=== PATIENT | male | born 1980 | race Asian ===

== ENCOUNTER 2018-02-21 10:09 | Outpatient (CLI) | payer OTHER ==
[2018-02-21 10:43] LABS: BASOPHILS % (AUTO) 0.9 % (0.0-2.0); EOSINOPHILS # (AUTO) 0.1 K/uL (0-0.4); EOSINOPHILS % (AUTO) 1.9 % (0.0-4.0); HEMATOCRIT 42.9 % (36-52); HEMOGLOBIN 14.4 g/dL (12.0-18.0); LYMPHOCYTES # (AUTO) 1.6 K/uL (2.0-11.5); LYMPHOCYTES % (AUTO) 34.5 % (20.5-51.1); MEAN CORPUSCULAR HEMOGLOBIN 30 pg (27-31); MEAN CORPUSCULAR HGB CONC 34 g/dL (33-37); MEAN CORPUSCULAR VOLUME 90.6 fL (80-94); MONOCYTES # (AUTO) 0.4 K/uL (0.8-1.0); MONOCYTES % (AUTO) 9.3 % (1.7-9.3); NEUTROPHILS # (AUTO) 2.5 K/uL (1.8-7.7); NEUTROPHILS % (AUTO) 53.4 % (42.2-75.2); PLATELET COUNT (AUTO) 198 K/uL (140-450); RED BLOOD CELL COUNT(AUTO) 4.73 MIL/uL (4.20-6.10); RED CELL DISTRIBUTION WIDTH 13.4 % (11.6-13.7); WHITE BLOOD COUNT (AUTO) 4.7 K/uL (4.8-10.8)
[2018-02-21 11:15] LABS: ANION GAP 9.8 (8-16); POTASSIUM 4.8 mmol/L (3.5-5.1)
[2018-02-21 11:16] LABS: TOTAL BILIRUBIN 0.5 mg/dL (0.0-1.0)
[2018-02-21 11:17] LABS: CHOL/HDL RATIO 3.9 (1-4.5)
[2018-02-21 11:29] LABS: MAGNESIUM 1.8 mg/dL (1.8-2.4)
[2018-02-21 12:26] LABS: APPEARANCE,URINE CLEAR (CLEAR); BILIRUBIN,URINE NEGATIVE (NEGATIVE); BLOOD, URINE NEGATIVE (NEGATIVE); COLOR,URINE YELLOW (YELLOW); LEUKOCYTE ESTERASE ,URINE NEGATIVE (NEGATIVE); NITRITE, URINE NEGATIVE (NEGATIVE); PH,URINE 7.5 (5.0-9.0); UGLUCOSE NEGATIVE (NEGATIVE)
[2018-02-21 13:16] LABS: THYROID STIMULATING HORMONE 1.76 uIU/mL (0.34-3.74)
[2018-02-22 09:08] LABS: T4 FREE (DIRECT) 1.21 ng/dL (0.82-1.77)
== END 2018-02-21 21:39 | disposition home or self-care (01) ==
LOC: MLB 10:09
PROVIDERS: ATTEND Family Medicine
DX: Z00.01 Encounter for general adult medical examination with abnormal findings (principal); G47.00 Insomnia, unspecified
CPT/HCPCS: 36415; 80053; 81003; 82306; 83036; 83735; 84439; 84443; 85025

== ENCOUNTER 2018-08-13 13:55 | Inpatient (IN) | payer OTHER ==
[~2018-08-13] VITALS: Ht 170.2 cm; Wt 65.8 kg
--- NOTE | 2018-08-13 14:09 | NUR ---
Patient ambulated to bed 12. RN evaluating patient at bedside.
[2018-08-13 14:22] VITALS: BP 111/74
--- NOTE | 2018-08-13 14:22 | NUR ---
PT BIB SELF C/O GENERALIZED WEAKNESS X8 DAYS. PT REPORTS FATIGUE AND DOUBLE VISION. AAOX4, COOPERATIVE, HANDGRIPS EQUAL, GAIT STEADY, SPEECH CLEAR, PERRLA. RT EYE DROOPY. PT REPORTS DRINKING 1 CAN OF BEER LAST NIGHT, DENEIS DRUG USE. PT DENIES PAIN AT THIS TIME. VSS. ER MD NOTIFED OF PT CONDITION. MEDHX:ANXIETY RX:EFFEXOR
--- NOTE | 2018-08-13 14:42 | NUR ---
PT GOING TO CT AT THIS TIME.
--- NOTE | 2018-08-13 14:51 | NUR ---
PT RETURNED FORM CT AT THIS TIME.
--- NOTE | 2018-08-13 14:51 | NUR ---
Patient returned from CT scan. RN re-evaluating patient at bedside.
[2018-08-13] MEDS ORDERED: NACL 0.9% 1,000 ML IV ONE (15:25)
[2018-08-13 15:50] LABS: BASOPHILS % (AUTO) 0.2 % (0.0-2.0); EOSINOPHILS % (AUTO) 0.1 % (0.0-4.0); HEMATOCRIT 42.1 % (36-52); HEMOGLOBIN 14.5 g/dL (12.0-18.0); LYMPHOCYTES # (AUTO) 1.5 K/uL (2.0-11.5); MEAN CORPUSCULAR HEMOGLOBIN 31 pg (27-31); MEAN CORPUSCULAR HGB CONC 35 g/dL (33-37); MEAN CORPUSCULAR VOLUME 91.2 fL (80-94); MONOCYTES # (AUTO) 0.4 K/uL (0.8-1.0); MONOCYTES % (AUTO) 4.1 % (1.7-9.3); NEUTROPHILS # (AUTO) 8.6 K/uL (1.8-7.7); NEUTROPHILS % (AUTO) 81.6 % (42.2-75.2); PLATELET COUNT (AUTO) 248 K/uL (140-450); RED BLOOD CELL COUNT(AUTO) 4.61 MIL/uL (4.20-6.10); RED CELL DISTRIBUTION WIDTH 13.1 % (11.6-13.7); WHITE BLOOD COUNT (AUTO) 10.5 K/uL (4.8-10.8)
[2018-08-13 16:03] LABS: ANION GAP 11.4 (8-16); CARBON DIOXIDE 27.8 mmol/L (21-32); POTASSIUM 4.2 mmol/L (3.5-5.1)
[2018-08-13 16:09] LABS: ALBUMIN 3.8 g/dL (3.4-5.0); TOTAL BILIRUBIN 0.4 mg/dL (0.0-1.0)
--- NOTE | 2018-08-13 16:19 | NUR ---
PT AMBULATED TO RESTROOM TO PROVIDE URINE SAMPLE AT THIS TIME.
[2018-08-13 16:37] LABS: APPEARANCE,URINE CLEAR (CLEAR); BILIRUBIN,URINE NEGATIVE (NEGATIVE); BLOOD, URINE NEGATIVE (NEGATIVE); COLOR,URINE OTHER (YELLOW); LEUKOCYTE ESTERASE ,URINE NEGATIVE (NEGATIVE); NITRITE, URINE NEGATIVE (NEGATIVE); UGLUCOSE NEGATIVE (NEGATIVE)
[2018-08-13] MEDS ORDERED: ONDANSETRON 4 MG/2 ML VIAL IM/IVP PRN (16:40)
[2018-08-13] MEDS ORDERED: DOCUSATE SODIUM 100 MG GELCAP PO PRN (16:40)
[2018-08-13] MEDS ORDERED: VENL150C1 PO (16:41)
--- NOTE | 2018-08-13 16:54 | NUR ---
Dr. Abhijeet Benjamin and Dr. Segura evaluating the patient at bedside.
[2018-08-13 17:33] LABS: LACTATE DEHYDROGENASE 158 U/L (85-227)
[2018-08-13 17:37] LABS: BARBITURATE, URINE NEG. ng/ml (NEG <=200); BENZODIAZEPINE, URINE NEG. ng/mL (NEG <=200); CANNABINOID, URINE NEG. ng/mL (NEG <=50); COCAINE, URINE NEG. ng/mL (NEG <=300); OPIATE, URINE NEG. ng/mL (NEG <=2000); PHENCYCLIDINE SCREEN,URINE NEG. ng/mL (NEG <=25)
[2018-08-13 17:40] LABS: AMYLASE 49 U/L (25-115); LIPASE 173 U/L (73-393); MAGNESIUM 1.9 mg/dL (1.8-2.4); PHOSPHORUS 3.4 mg/dL (2.5-4.9); THYROID STIMULATING HORMONE 0.99 uIU/mL (0.34-3.74)
[2018-08-13 17:43] LABS: PROTHROMBIN TIME 10.3 secs (10.8-13.4)
--- NOTE | 2018-08-13 17:43 | NUR ---
Dr. Lobato (Neurology) evaluating patient at bedside.
--- NOTE | 2018-08-13 18:10 | NUR ---
Patient will be admitted to care of [facility]. Admited to ICU BED 2 VIA KWASI W/ VSAlphonso. Belongings list completed. Report to ARASH KING.
--- NOTE | 2018-08-13 18:11 | NUR ---
RECEIVED PATIENT FROM MAIL HANDLER EQUIPMENT OPERATOR, LU, FOR CONTINUITY OF CARE. PATIENT IS AAOX4, ABLE TO MAKE NEEDS KNOWN AND FOLLOWS COMMANDS. PATIENT SKIN IS WARM, DRY, AFEBRILE, AND INTACT. HE HAS A PERIPHERAL IV SITE TO RAC, 20 GAUGE, ASYMPTOMATIC AND PATENT. HE HAS NS RUNNING AT 100ML/HR. PATIENT IS ON ROOM AIR, SR ON MONITOR, BP IS 112/90, O2 SAT 100%, DENIES ANY N, V, SOB, OR PAIN. HOB IS SEMI- CABALLERO, BED LOCKED, SIDE RAILS UP. SAFETY PRECAUTIONS AND ALARMS ASSESSED AND IN PLACE. NO SIGNS OF DISTRESS NOTED. WILL CONTINUE TO MONITOR
[2018-08-13] MEDS: NACL 0.9% 1,000 ML IV SCH (18:20)
--- NOTE | 2018-08-13 18:23 | NUR ---
DR. BRAND IN TO SEE PATIENT.
--- NOTE | 2018-08-13 19:18 | NUR ---
ENDORSED CONTINUITY OF CARE TO PHOTOCOPIER TECHNICIAN RN, BRANT. NO SIGNS OF DISTRESS NOTED
--- NOTE | 2018-08-13 19:30 | NUR ---
RECEIVED REPORT FROM AM NURSE, PT AT BED AWAKE, A&O X4, PERRLA 3MM, BRISK, TEMP. 98.3, S1S2 PRESENT, REGULAR, PULSES 2+, FULL, BILATERAL LOWER AND UPPER EXTREMITIES, CAP REFILL <3S, LUNG SOUNDS CLEAR THROUGHOUT, RR 14, REGULAR, SYMMETRICAL, UNLABORED, BOWEL SOUNDS PRESENT AND ACTIVE IN ALL QUADRANTS, LAST BM 01/13/19, MUSCLE STRENGTH 5/5 BILATERAL ON UPPER AND LOWER EXTREMITIES, SKIN INTACT, COLOR APPROPRIATE FOR BOTH ETHNICITY, PT HAS 20G ON RIGHT AC, RUNNING NS AT 100ML/HR. SIDE RAILS UP X2, ROOM FREE OF CLUTTER, HOB AT 30 DEGREES.
[2018-08-13] MEDS: ACETAMINOPHEN 325 MG TAB PO PRN (20:05)
[2018-08-13] MEDS: PYRIDOSTIGMINE 60 MG TAB PO SCH (20:05)
[2018-08-13 20:44] VITALS: BP 124/83
[2018-08-13] MEDS ORDERED: IBUPROFEN 600 MG TAB PO SCH (21:00)
[2018-08-13] MEDS ORDERED: diphenhydrAMINE 50 MG/ML VIAL IVP SCH (21:00)
[2018-08-13 22:00] VITALS: BP 124/72
--- NOTE | 2018-08-13 22:00 | NUR ---
PT BELONGING AT BEDSIDE: SHOES/JACKET/PANTS IN BELONGING BACK, BLACK BACKPACK PRESENT AT BEDSIDE IN DRAWERS. PT IN POSSESSION OF BLACK CELLPHONE/AERODYNAMICS TEACHER. PT WAS WEARING GOLD NECKLACE PRIOR TO GOING TO CT SCAN, NECKLACE WAS REMOVED AND PLACED IN PATIENT WALLET, PT WALLET PLACED IN SIDE POCKET OF BACKPACK. PT IS AWARE OF THE LOCATIONS OF HIS BELONGINGS.
--- NOTE | 2018-08-13 22:02 | NUR ---
PT TRANSFERRED TO IMAGING BY KWASI FOR CT CHEST WITH CONTRAST. PT TOLERATED PROCEDURE WELL.
--- NOTE | 2018-08-13 22:25 | NUR ---
RECEIVED PT ON ICU FROM IMAGING. PT AWAKE AND COOPERATIVE, VS WNL, IV FLUIDS RUNNING, NS 100 ML/HR, SIDE RAILS UP X2, ROOM FREE OF CLUTTER, CALL LIGHT WITHIN REACH, HOB RAISED 30 DEGREES, PT TOLERATED PROCEDURE WELL, WILL CONTINUE TO MONITOR PT.
[2018-08-14] VITALS (12 sets, daily range): BP systolic 89–127; BP diastolic 54–79
--- NOTE | 2018-08-14 00:23 | NUR ---
PT AT BED, EYES CLOSED, BREATHING REGULARLY, VS WNL, SIDE RAILS UP X2, CALL LIGHT WITHIN REACH, ALARMS IN PLACE. WILL CONTINUE TO MONITOR PT.
[2018-08-14] MEDS: NACL 0.9% 1,000 ML IV SCH (00:26)
[2018-08-14] MEDS: PYRIDOSTIGMINE 60 MG TAB PO SCH ×5 (00:54→23:53)
--- NOTE | 2018-08-14 02:32 | NUR ---
PT AT BED, EYES CLOSED, BREATHING REGULARLY, VS WNL, SIDE RAILS UP X2, CALL LIGHT WITHIN REACH, ALARMS IN PLACE, HOB AT 30 DEGREES. WILL CONTINUE TO MONITOR PT.
--- NOTE | 2018-08-14 05:47 | NUR ---
PT UP AT BEDSIDE ABLE TO AMBULATE TO COMMODE, STEADY GATE. PT DENIES SOB/PAIN. INDEPENDENT WITH AM CARES, CALM/COOPERATIVE. PT STATED HE HAD MODERATE BOWEL MOVEMENT. Addendum: 08/14/18 at 0550 by Eulalia Preciado RN ABLE TO AMBULATE TO BATHROOM IN ROOM 8.
[2018-08-14 06:40] LABS: ANION GAP 8.7 (8-16); POTASSIUM 4.7 mmol/L (3.5-5.1)
[2018-08-14 06:43] LABS: PHOSPHORUS 3.8 mg/dL (2.5-4.9)
[2018-08-14 06:44] LABS: BASOPHILS % (AUTO) 0.6 % (0.0-2.0); EOSINOPHILS # (AUTO) 0.1 K/uL (0-0.4); EOSINOPHILS % (AUTO) 1.2 % (0.0-4.0); HEMATOCRIT 38.9 % (36-52); HEMOGLOBIN 13.4 g/dL (12.0-18.0); LYMPHOCYTES # (AUTO) 1.9 K/uL (2.0-11.5); LYMPHOCYTES % (AUTO) 33.5 % (20.5-51.1); MEAN CORPUSCULAR HEMOGLOBIN 32 pg (27-31); MEAN CORPUSCULAR HGB CONC 34 g/dL (33-37); MEAN CORPUSCULAR VOLUME 92.3 fL (80-94); MONOCYTES # (AUTO) 0.5 K/uL (0.8-1.0); MONOCYTES % (AUTO) 8.2 % (1.7-9.3); NEUTROPHILS # (AUTO) 3.2 K/uL (1.8-7.7); NEUTROPHILS % (AUTO) 56.5 % (42.2-75.2); PLATELET COUNT (AUTO) 222 K/uL (140-450); RED BLOOD CELL COUNT(AUTO) 4.22 MIL/uL (4.20-6.10); RED CELL DISTRIBUTION WIDTH 13.5 % (11.6-13.7); WHITE BLOOD COUNT (AUTO) 5.6 K/uL (4.8-10.8)
[2018-08-14 06:46] LABS: CHOL/HDL RATIO 3.8 (1-4.5)
--- NOTE | 2018-08-14 07:18 | NUR ---
RECEIVED BEDSIDE REPORT FROM CHARGEBACK ANALYST RN, BRANT, FOR CONTINUITY OF CARE. PATIENT IS AAOX4, ABLE TO MAKE NEEDS KNOWN AND FOLLOWS COMMANDS. PATIENT SKIN IS AFEBRILE, WARM, AND DRY. ON ROOM AIR, O2 SAT IS 100%, BREATHING EVEN AND UNLABORED. PATIENT IS SR ON MONITOR, DENIES PAIN OR SOB. HOB 30 DEGREES, BED LOCKED, SIDE RAILS UP. NO SIGNS OF DISTRESS NOTED. CALL LIGHT WITHIN REACH. WILL CONTINUE TO MONITOR
--- NOTE | 2018-08-14 07:24 | NUR ---
CHANGE OF SHIFT REPORT GIVEN TO AM NURSE FOR CONTINUITY OF CARE.
[2018-08-14] MEDS: VENLAFAXINE XR 75 MG CAPER PO SCH (08:55)
[2018-08-14] MEDS ORDERED: COMMUNICATION ORDER MC SCH (09:00)
[2018-08-14] MEDS ORDERED: ALBUTEROL SULFATE/IPRATROPIU 3 ML SOL IH PRN (10:10)
[2018-08-14] MEDS: diphenhydrAMINE 50 MG/ML VIAL IVP SCH (11:53)
[2018-08-14] MEDS: IBUPROFEN 600 MG TAB PO SCH (11:53)
[2018-08-14] MEDS ORDERED: PRIVIGEN IV SCH (12:00)
--- NOTE | 2018-08-14 12:26 | NUR ---
DR. GOMEZ AND DR. HEATH IN TO SEE PATIENT, WILL FOLLOW UP ON ANY ORDERS.
--- NOTE | 2018-08-14 12:44 | NUR ---
PATIENT HAS BEEN SCREENED AND CATEGORIZED MODERATE NUTRITION RISK. PATIENT WILL BE SEEN WITHIN 3-5 DAYS OF ADMISSION. 08/16/18AMANDA POOLE MBA, RD
--- NOTE | 2018-08-14 12:44 | NUR ---
DR. POND IN TO SEE AND EXAMINE PATIENT, UPDATED ON PATIENT'S CONDITION. WILL FOLLOW UP ON ANY ORDERS.
--- NOTE | 2018-08-14 12:50 | NUR ---
PER DR. HEATH, D/C IVF TO PREVENT PATIENT FROM FLUID OVERLOAD.
--- NOTE | 2018-08-14 15:22 | NUR ---
REPEATED PT PEAK FLOW NOW 220
--- NOTE | 2018-08-14 16:35 | NUR ---
TOLERATED PEAK FLOW METER WELL WITHOUT INCIDENT PREDICTED 560 L ACHIEVED 530 L
--- NOTE | 2018-08-14 17:17 | NUR ---
ADMINISTERED SCHEDULED MED, PATIENT TOLERATED WELL. NO SIGNS OF DISTRESS NOTED.
--- NOTE | 2018-08-14 19:30 | NUR ---
RECEIVED BEDSIDE REPORT FROM DAY RN, FOR CONTINUITY OF CARE. PATIENT IS AAOX4, ABLE TO MAKE NEEDS KNOWN AND FOLLOWS COMMANDS. PATIENT SKIN IS AFEBRILE, WARM, AND DRY. ON ROOM AIR, O2 SAT IS 100%, BREATHING EVEN AND UNLABORED. PATIENT IS SR ON MONITOR, DENIES PAIN OR SOB. HOB 30 DEGREES, BED LOCKED, SIDE RAILS UP. NO SIGNS OF DISTRESS NOTED. CALL LIGHT WITHIN REACH. WILL CONTINUE TO MONITOR. IVIG IS RUNNING.
--- NOTE | 2018-08-14 22:24 | NUR ---
PT COMFORTABLE, NO S/S OF ANY DISTRESS. WILL CONTINUE TO MONITOR CLOSELY.
[2018-08-15] VITALS (12 sets, daily range): BP systolic 91–121; BP diastolic 51–84
--- NOTE | 2018-08-15 02:00 | NUR ---
PT HAS RIGHT EYE AND ARM WEAKNESS FOR A BRIEF PERIOD. ABLE TO WALK TO THE RESTROOM. WILL CONTINUE TO MONITOR.
--- NOTE | 2018-08-15 04:00 | NUR ---
PT COMFORTABLE, WILL CONTINUE TO MONITOR CLOSELY.
[2018-08-15] MEDS: PYRIDOSTIGMINE 60 MG TAB PO SCH ×5 (06:14→23:51)
--- NOTE | 2018-08-15 06:30 | NUR ---
PT STABLE, NO S/S OF ANY EPISODE OF SEIZURES. WILL CONTINUE TO MONITOR CLOSELY.
--- NOTE | 2018-08-15 07:15 | NUR ---
RECEIVED BEDSIDE REPORT FROM SCRIPT WRITER RN, ASHLYN, FOR CONTINUITY OF CARE. PATIENT IS AAOX4, FOLLOWS COMMANDS AND MAKES NEEDS KNOWN. PATIENT SKIN IS WARM, DRY, INTACT. SHE HAS PERIPHERAL IV SITE TO RAC, 20 GAUGE, ASYMPTOMATIC AND PATENT. PATIENT IS ON ROOM AIR, BREATHING EVEN AND UNLABORED. HE IS SR ON MONITOR, BP STABLE, DENIES PAIN OR SOB. HOB IS HIGH CABALLERO, BED LOCKED, SIDE RAILS UP. SAFETY ALARMS AND PRECAUTIONS ASSESSED AND ENFORCED. NO SIGNS OF DISTRESS NOTED. WILL CONTINUE TO MONITOR.
[2018-08-15 07:19] LABS: BASOPHILS % (AUTO) 0.3 % (0.0-2.0); EOSINOPHILS # (AUTO) 0.1 K/uL (0-0.4); EOSINOPHILS % (AUTO) 1.2 % (0.0-4.0); HEMATOCRIT 39.7 % (36-52); HEMOGLOBIN 13.4 g/dL (12.0-18.0); LYMPHOCYTES # (AUTO) 1.4 K/uL (2.0-11.5); LYMPHOCYTES % (AUTO) 23.6 % (20.5-51.1); MEAN CORPUSCULAR HEMOGLOBIN 31 pg (27-31); MEAN CORPUSCULAR HGB CONC 34 g/dL (33-37); MEAN CORPUSCULAR VOLUME 92.1 fL (80-94); MONOCYTES # (AUTO) 0.5 K/uL (0.8-1.0); MONOCYTES % (AUTO) 7.8 % (1.7-9.3); NEUTROPHILS % (AUTO) 67.1 % (42.2-75.2); PLATELET COUNT (AUTO) 224 K/uL (140-450); RED BLOOD CELL COUNT(AUTO) 4.31 MIL/uL (4.20-6.10); RED CELL DISTRIBUTION WIDTH 13.5 % (11.6-13.7); WHITE BLOOD COUNT (AUTO) 5.9 K/uL (4.8-10.8)
--- NOTE | 2018-08-15 07:25 | NUR ---
BSSR GIVEN TO MORNING NURSE, PT STABLE. GCS 15
[2018-08-15 07:28] LABS: ANION GAP 8.7 (8-16); CARBON DIOXIDE 31.4 mmol/L (21-32); CREATININE 0.9 mg/dL (0.7-1.3); POTASSIUM 4.1 mmol/L (3.5-5.1)
[2018-08-15 07:29] LABS: MAGNESIUM 1.9 mg/dL (1.8-2.4); PHOSPHORUS 3.9 mg/dL (2.5-4.9)
--- NOTE | 2018-08-15 08:12 | NUR ---
BREAKFAST TRAY PROVIDED, PATIENT WALKED TO RESTROOM WITH STEADY GAIT. VITALS STABLE ON MONITOR
--- NOTE | 2018-08-15 08:56 | NUR ---
PATIENT TOLERATED 100% OF BREAKFAST, ADMINISTERED SCHEDULE MEDS, HELD MOTRIN AND BENADRYL FOR IVIG MEDICATION DUE AT 1200. PATIENT AWARE.
[2018-08-15] MEDS: VENLAFAXINE XR 75 MG CAPER PO SCH (09:00)
--- NOTE | 2018-08-15 10:39 | NUR ---
SPOKE WITH PATIENT REGARDING POSITIVE FOR MRSA, EDUCATED ON MRSA PROTOCOL, SUCH CONTACT ISOLATION, BACTROBAN TO NARES DAILY, AND CHLORHEXIDINE WIPES DAILY. PATIENT VERBALIZED UNDERSTANDING.
[2018-08-15] MEDS: CHLORHEXADINE GLUC 2% CLOTH TP SCH (10:53)
[2018-08-15] MEDS: IBUPROFEN 600 MG TAB PO SCH (11:52)
[2018-08-15] MEDS: MUPIROCIN CA NASAL 2% 1GM TUBE NS SCH (11:52)
[2018-08-15] MEDS: diphenhydrAMINE 50 MG/ML VIAL IVP SCH (11:52)
[2018-08-15] MEDS ORDERED: PRIVIGEN IV SCH (12:00)
--- NOTE | 2018-08-15 12:08 | NUR ---
STARTED PATIENT ON IVIG MEDICATION, PATIENT TOLERATING WELL. VERBALIZES UNDERSTANDING OF SIDE EFFECTS OF MEDICATION. NO SIGNS OF DISTRESS NOTED, WILL CONTINUE TO MONITOR
--- NOTE | 2018-08-15 13:04 | NUR ---
PATIENT COMPLAINS TO BURNING AT IV SITE. PERIPHERAL IV SITE WAS REMOVED FROM RAC, A NEW PERIPHERAL IV SITE WAS PLACED ON RFA, 18 GAUGE. PATIENT WAS EDUCATED ON IVIG ADMINISTRATION AND SIDE EFFECTS, AWARE THAT IVIG CAN SLIGHTLY BURN. PATIENT VERBALIZED UNDERSTANDING.
--- NOTE | 2018-08-15 13:17 | NUR ---
DR. GOMEZ AND DR. HEATH AT BEDSIDE, UPDATED ON PATIENT'S CONDITION. WILL FOLLOW UP ON ANY ORDERS.
--- NOTE | 2018-08-15 17:30 | NUR ---
PATIENT GIVEN DINNER TRAY, DENIES ANY SOB OR PAIN.
--- NOTE | 2018-08-15 19:00 | NUR ---
ENDORSED CONTINUITY OF CARE TO SYSTEM OPERATOR RNORBE. NO SIGNS OF DISTRESS AT THIS TIME.
--- NOTE | 2018-08-15 19:15 | NUR ---
RECEIVED REPORT FROM AM NURSE. INITIAL ASSESSMENT COMPLETED. PATIENT ALERT AWAKE ORIENTED X4. ATTACHED TO CORN CUTTER OPERATOR, PULSE OXIMETER. IV ACCESS AT RIGHT RIGHT FOREARM 18G, PATENT, INTACT. ABLE TO VOID FREELY. URINE OUTPUT 500 ML AT THIS TIME. DENIES ANY PAIN AT THIS TIME. NO SIGNS OF DISTRESS. BED IN LOW POSITION. SAFETY MEASURE ENSURE. CALL LIGHT WITHIN REACH. WILL CONTINUE TO MONITOR.
--- NOTE | 2018-08-15 20:00 | NUR ---
DUE MED GIVEN. PT TOLERATED WELL. WILL CONTINUE TO MONITOR.
--- NOTE | 2018-08-15 22:00 | NUR ---
2ND BOTTLE OF IVIG CONSUMED, 3RD BOTTLE OF IVIG STARTED. NO DISTRESS NOTED. PT ASLEEP AT THIS TIME. WILL CONTINUE TO MONITOR.
[2018-08-16] VITALS (10 sets, daily range): BP systolic 97–129; BP diastolic 47–81
--- NOTE | 2018-08-16 01:15 | NUR ---
PT ASLEEP AT THIS TIME. WILL CONTINUE TO MONITOR.
--- NOTE | 2018-08-16 03:10 | NUR ---
3RD BOTTLE OF IVIG CONSUMED. IV SITE FLUSHED WITH NS PER INSTRUCTION. IV SITE PATENT, INTACT. DENIES PAIN AT THIS TIME. WILL CONTINUE TO MONITOR.
[2018-08-16] MEDS: PYRIDOSTIGMINE 60 MG TAB PO SCH ×6 (03:32→23:43)
--- NOTE | 2018-08-16 05:38 | NUR ---
PATIENT AWAKE, ABLE TO AMBULATE WITH STEADY GAIT. PT INDEPENDENT OF MORNING CARE. WILL CONTINUE TO MONITOR.
--- NOTE | 2018-08-16 05:50 | NUR ---
PT REFUSED SCDS. PT IS AMBULATORY.
[2018-08-16 06:05] LABS: BASOPHILS % (AUTO) 0.5 % (0.0-2.0); EOSINOPHILS # (AUTO) 0.1 K/uL (0-0.4); EOSINOPHILS % (AUTO) 2.2 % (0.0-4.0); HEMATOCRIT 39.7 % (36-52); HEMOGLOBIN 13.6 g/dL (12.0-18.0); LYMPHOCYTES # (AUTO) 1.4 K/uL (2.0-11.5); LYMPHOCYTES % (AUTO) 23.9 % (20.5-51.1); MEAN CORPUSCULAR HEMOGLOBIN 32 pg (27-31); MEAN CORPUSCULAR HGB CONC 34 g/dL (33-37); MEAN CORPUSCULAR VOLUME 92.3 fL (80-94); MONOCYTES # (AUTO) 0.6 K/uL (0.8-1.0); MONOCYTES % (AUTO) 9.5 % (1.7-9.3); NEUTROPHILS # (AUTO) 3.7 K/uL (1.8-7.7); NEUTROPHILS % (AUTO) 63.9 % (42.2-75.2); PLATELET COUNT (AUTO) 232 K/uL (140-450); RED CELL DISTRIBUTION WIDTH 13.4 % (11.6-13.7); WHITE BLOOD COUNT (AUTO) 5.8 K/uL (4.8-10.8)
[2018-08-16 06:26] LABS: PHOSPHORUS 3.5 mg/dL (2.5-4.9)
--- NOTE | 2018-08-16 07:35 | NUR ---
REPORT GIVEN TO FERNANDO PIRES FOR CONTINUITY OF CARE.
--- NOTE | 2018-08-16 07:35 | NUR ---
RECEIVED REPORT FROM VICE PROVOST RN. PT RESTING IN BED. A/O X4. MAKES NEEDS KNOWN. IN ROOM AIR. SPO2 100%. LUNGS CLEAR. MARKY 18G SALINE LOCK NOTED. SITE PINK, FLUSHED. PT REFUSED TO CHANGE THE IV LINE AT THIS TIME. ABDOMEN SOFT, ROUND AND NON-TENDER. ACTIVE BOWEL SOUND. SKIN INTACT. DENIES PAIN OR GENERALIZED WEAKNESS AT THIS TIME. PT REPORTS HE HAS DROOPING EYE LIDS. VSS. BED IN LOW POSITION, LOCKED. CALL LIGHT WITHIN REACH.
--- NOTE | 2018-08-16 08:00 | NUR ---
PTS PEAK FLOW 630
[2018-08-16] MEDS: diphenhydrAMINE 50 MG/ML VIAL IVP SCH (08:20)
[2018-08-16] MEDS: IBUPROFEN 600 MG TAB PO SCH (08:21)
[2018-08-16] MEDS: VENLAFAXINE XR 75 MG CAPER PO SCH (08:21)
[2018-08-16 09:20] LABS: ANION GAP 8.9 (8-16); CARBON DIOXIDE 28.9 mmol/L (21-32); CREATININE 1.1 mg/dL (0.7-1.3); POTASSIUM 4.8 mmol/L (3.5-5.1)
[2018-08-16] MEDS: CHLORHEXADINE GLUC 2% CLOTH TP SCH (10:27)
[2018-08-16] MEDS: MUPIROCIN CA NASAL 2% 1GM TUBE NS SCH (10:27)
--- NOTE | 2018-08-16 11:30 | NUR ---
NO SOB OR ACUTE RESPIRATORY DISTRESS NOTED. VSS. DENIES PAIN OR WEAKNESS. HOB ELEVATED. BED IN LOW POSITION LOCKED. CONTINUE TO MONITOR.
[2018-08-16] MEDS ORDERED: PRIVIGEN IV SCH (12:00)
--- NOTE | 2018-08-16 15:26 | NUR ---
NO SOB OR ACUTE RESPIRATORY DISTRESS NOTED. NO CHANGE IN CONDITION. VSS. WILL CONTINUE TO MONITOR.
--- NOTE | 2018-08-16 16:45 | NUR ---
ICE PACK APPLIED TO RIGHT FOREARM. KEPT ARM ELEVATED.
--- NOTE | 2018-08-16 18:00 | NUR ---
PT EVALUATED BY DR. CREWS. MADE AWARE OF PT STATUS.
--- NOTE | 2018-08-16 18:45 | NUR ---
REPORT GIVEN TO FERNANDO HENNING. PT TRANSFERRED TO TELE UNIT ROOM 115 ON STABLE CONDITION. BELONGINGS TAKEN WITH PT.
--- NOTE | 2018-08-16 18:46 | NUR ---
PATIENT ARRIVED FROM ICU VIA WHEELCHAIR. IN STABLE CONDITION. ABLE TO AMBULATE WITH STEADY GAIT. REPORT RECEIVED AT BEDSIDE. WILL CONTINUE TO MONITOR.
--- NOTE | 2018-08-16 19:30 | NUR ---
GAVE REPORT TO SUPERVISOR MAJOR APPLIANCE ASSEMBLY NURSE FOR CONTINUITY OF CARE. PATIENT IN STABLE CONDITION.
--- NOTE | 2018-08-16 19:30 | NUR ---
RECEIVED PT ON BED, AAOX4, ABLE TO MAKE NEEDS KNOWN, VITAL SIGNS STABLE, DENIES ANY PAIN, NO SOB NOTED, VERBALIZED FEELING BETTER AND STRONGER, IVIG INFUSING WELL AT 20ML/H, PLAN OF CARE DISCUSSED, SAFETY MEASURES IN PLACE, ON CONTACT ISOLATION, CALL LIGHT WITHIN REACH.
--- NOTE | 2018-08-16 21:05 | NUR ---
4TH BOTTLE OF IVIG DONE, 5TH AND LAST BOTTLE OF IVIG STARTED AT 20ML/H, MONITORED FOR ANY REACTION, NO DISTRESS AT THIS TIME, MONITORED CLOSELY.
--- NOTE | 2018-08-16 23:00 | NUR ---
IVIG DONE, NO REACTION NOTED, IV FLUSHES WELL, PT AWAKE AND CONVERSANT, IV HEPLOCK AT THIS TIME, MONITORED CLOSELY.
[2018-08-17] VITALS: BP 115/83
--- NOTE | 2018-08-17 | NUR ---
PT SLEEPING, EASILY AROUSABLE, VITAL SIGNS STABLE, DUE PO MEDICATION GIVEN, NO DISTRESS NOTED, CONTINUE TO MONITOR CLOSELY.
[2018-08-17] MEDS: PYRIDOSTIGMINE 60 MG TAB PO SCH ×6 (03:54→23:05)
--- NOTE | 2018-08-17 03:55 | NUR ---
PT SLEEPING, EASILY AROUSABLE, VITAL SIGNS STABLE, DENIES ANY PAIN, NO SOB NOTED, DUE MESTINON TAKEN, MONITORED CLOSELY.
[2018-08-17 04:00] VITALS: BP 105/78
--- NOTE | 2018-08-17 05:30 | NUR ---
ROUNDS MADE, PT SLEEPING, VISIBLE CHEST RISE AND FALL, NO SIGNS OF DISTRESS, MONITORED CLOSELY.
--- NOTE | 2018-08-17 07:24 | NUR ---
PT AWAKE AMBULATING AROUND THE ROOM WITH STEADY GAIT, NO DISTRESS NOTED, REPORT GIVEN TO FERNANDO ELLIS FOR CONTINUITY OF CARE.
--- NOTE | 2018-08-17 07:25 | NUR ---
RECEIVED REPORT FROM HUMAN RESOURCES ADVISOR NURSE AT BEDSIDE FOR CONTINUITY OF CARE. PT IS AWAKE AND ORIENTED. INTRODUCED MYSELF AND UPDATED THE BOARD. PT IS ON CONTACT ISOLATION FOR MRSA NARES. PT HAS HIS EYES OPEN AND SMILES WITHOUT STRAINING. PT IS AMBULATING WELL. OVERALL DOING BETTER PER PT. VS WITHIN NORMAL RANGE. SKIN INTACT. NO COMPLAINTS OF PAIN. IV ON L FA 18G SL. LAST BM 08/16. WILL BE ADMINISTERING IVIG AROUND NOON. WILL CONTINUE TO MONITOR PT.
[2018-08-17 07:51] LABS: BASOPHILS # (AUTO) 0.1 K/uL (0.00-0.22); BASOPHILS % (AUTO) 1.4 % (0.0-2.0); EOSINOPHILS # (AUTO) 0.2 K/uL (0-0.4); EOSINOPHILS % (AUTO) 3.2 % (0.0-4.0); HEMATOCRIT 45.3 % (36-52); HEMOGLOBIN 15.2 g/dL (12.0-18.0); LYMPHOCYTES # (AUTO) 1.4 K/uL (2.0-11.5); LYMPHOCYTES % (AUTO) 25.7 % (20.5-51.1); MEAN CORPUSCULAR HEMOGLOBIN 31 pg (27-31); MEAN CORPUSCULAR HGB CONC 34 g/dL (33-37); MEAN CORPUSCULAR VOLUME 92.4 fL (80-94); MONOCYTES # (AUTO) 0.6 K/uL (0.8-1.0); MONOCYTES % (AUTO) 10.8 % (1.7-9.3); NEUTROPHILS # (AUTO) 3.3 K/uL (1.8-7.7); NEUTROPHILS % (AUTO) 58.9 % (42.2-75.2); PLATELET COUNT (AUTO) 246 K/uL (140-450); RED CELL DISTRIBUTION WIDTH 13.3 % (11.6-13.7); WHITE BLOOD COUNT (AUTO) 5.6 K/uL (4.8-10.8)
[2018-08-17 08:00] VITALS: BP 109/65
[2018-08-17 08:05] LABS: ANION GAP 11.2 (8-16); POTASSIUM 4.2 mmol/L (3.5-5.1)
[2018-08-17] MEDS: VENLAFAXINE XR 75 MG CAPER PO SCH (08:11)
[2018-08-17] MEDS: diphenhydrAMINE 50 MG/ML VIAL IVP SCH ×2 (08:11→11:31)
[2018-08-17] MEDS: IBUPROFEN 600 MG TAB PO SCH ×2 (08:11→11:31)
--- NOTE | 2018-08-17 08:15 | NUR ---
ADMINISTERED MORNING MEDS, INCLUDING MOTRIN. PHARMACIST CALLED AFTER I ADMINISTERED. PER PHARMACY, BENADRYL AND MOTRIN TO BE GIVEN AT 1200 BEFORE THE IVIG. HELD THE BENADRYL. WILL NOTIFY MD REGARDING ADMINISTRATION OF MOTRIN. PT TOLERATED WELL. WILL CONTINUE TO MONITOR PT.
[2018-08-17 08:20] LABS: MAGNESIUM 2.2 mg/dL (1.8-2.4); PHOSPHORUS 4.1 mg/dL (2.5-4.9)
[2018-08-17] MEDS: CHLORHEXADINE GLUC 2% CLOTH TP SCH (10:36)
[2018-08-17] MEDS: MUPIROCIN CA NASAL 2% 1GM TUBE NS SCH (11:30)
--- NOTE | 2018-08-17 11:53 | NUR ---
STARTED THE IVIG. PT V/S WITHIN NORMAL. PT TOLERATING WELL. WILL CONTINUE TO MONITOR PT Addendum: 08/17/18 at 1154 by Rosy Jorge RN ADMINISTERED PRE MEDS, BENADRYL AND MOTRIN AND SCHEDULED MEDS.
[2018-08-17 12:00] VITALS: BP 110/68
[2018-08-17] MEDS ORDERED: PRIVIGEN IV SCH (12:00)
--- NOTE | 2018-08-17 13:02 | NUR ---
STARTED BOTTLE 2 OF IVIG. PT TOLERATING WELL.
--- NOTE | 2018-08-17 15:37 | NUR ---
STARTED BOTTLE 3. PT IS SLEEPING. WILL CONTINUE TO MONITOR PT.
[2018-08-17 16:00] VITALS: BP 97/57
--- NOTE | 2018-08-17 18:14 | NUR ---
STARTED BOTTLE 4 OF IVIG. PT EATING DINNER. TOLERATING IVIG WELL. WILL CONTINUE TO MONITOR PT.
--- NOTE | 2018-08-17 19:15 | NUR ---
ENDORSED PT TO THE WORKDAY CONSULTANT NURSE. PT IS IN STABLE CONDITION.
--- NOTE | 2018-08-17 19:16 | NUR ---
REPORT RECEIVED FROM AM NURSE AT BEDSIDE. PT IN STABLE CONDITION. AAOX4. INTRODUCED SELF TO PT. BOARD UPDATED. NO COMPLAINTS OF PAIN. NO SOB. AFEBRILE. IV SITE L FA 18G RUNNING IVIG@20ML/HR PATENT AND INTACT. PT OTHERWISE WOULD BE SL IF NO IVIG RUNNING. SKIN WARM, DRY, AND INTACT WITH NO OPEN WOUNDS. PT IS AMBULATORY. PT ON CONTACT ISOLATION FOR MRSA OF NARES. BED LOCKED IN LOW POSITION. CALL FOWLER WITHIN REACH. SAFETY PRECAUTION IN PLACE. ALL NEEDS MET AT THIS TIME.
[2018-08-17 20:00] VITALS: BP 101/62
--- NOTE | 2018-08-17 20:31 | NUR ---
MESTINON GIVEN PO. PT TOLERATED WELL.
--- NOTE | 2018-08-17 20:45 | NUR ---
STARTED BOTTLE 5 OF IVIG. PT IS SITTING UP IN BED PLAYING ON HIS PHONE. NO S/S OF DISTRESS NOTED.
--- NOTE | 2018-08-17 21:45 | NUR ---
PT AWAKE AND ALERT ON HIS PHONE. NO S/S OF DISTRESS NOTED. WILL CONTINUE TO MONITOR.
--- NOTE | 2018-08-17 23:05 | NUR ---
MESTINON GIVEN PO. PT TOLERATED WELL. Addendum: 08/18/18 at 0026 by Quincy Magallon RN BOTTLE 6 OF IVIG HUNG AND RUNNING.
[2018-08-18] VITALS: BP 103/67
--- NOTE | 2018-08-18 00:15 | NUR ---
PT AWAKE AND ALERT PLAYING ON HIS PHONE. NO S/S OF DISTRESS NOTED. WILL CONTINUE TO MONITOR.
--- NOTE | 2018-08-18 02:15 | NUR ---
PT SLEEPING COMFORTABLY IN BED. NO S/S OF DISTRESS NOTED. WILL CONTINUE TO MONITOR.
[2018-08-18] MEDS: PYRIDOSTIGMINE 60 MG TAB PO SCH ×6 (03:48→23:13)
--- NOTE | 2018-08-18 03:48 | NUR ---
MESTINON GIVEN PO. PT TOLERATED WELL.
[2018-08-18 04:00] VITALS: BP 104/60
--- NOTE | 2018-08-18 05:30 | NUR ---
PT SLEEPING COMFORTABLY BUT AROUSABLE. NO S/S OF DISTRESS NOTED. NO COMPLAINTS OF PAIN. NO SOB. AFEBRILE. WILL CONTINUE TO MONITOR.
[2018-08-18] MEDS: ACETAMINOPHEN 325 MG TAB PO PRN (06:00)
--- NOTE | 2018-08-18 06:00 | NUR ---
TYL GIVEN FOR 6/10 HEADACHE. PT TOLERATED WELL.
--- NOTE | 2018-08-18 07:10 | NUR ---
REPORT GIVEN TO AM NURSE AT BEDSIDE. PT IN STABLE CONDITION.
--- NOTE | 2018-08-18 07:13 | NUR ---
RECEIVED BED SIDE REPORT FROM OCCUPATIONAL THERAPY PROFESSOR RN. PT SLEEPING IN BED IN NO PAIN OR RESPIRATORY DISTRESS. PT A/O X4, SKIN INTACT, L FOREARM 18G RUNNING IV IMMUNOGLOBULIN. ON TELE MONITOR SHOWING SR. PT COMPLAINS OF PADILLA 9/10 PRESSURE LIKE PADILLA. LAST TYLENOL GIVEN AT 0600 BY OCCUPATIONAL THERAPY PROFESSOR RN. WILL MEDICATE PER MD ORDER. CONTACT PRECAUTIONS MRSA NARES. CALL LIGHT WITHIN REACH WILL CONTINUE TO MONITOR
[2018-08-18 08:00] VITALS: BP 105/71
[2018-08-18] MEDS: VENLAFAXINE XR 75 MG CAPER PO SCH (08:42)
--- NOTE | 2018-08-18 10:14 | NUR ---
CAME TO SEE PT D/T PT COMPLAINING OF 9/10 PADILLA AND EYE PAIN AND BLURRY VISION. ICE PACK WAS APPLIED PRIOR TO ARRIVING. CALL EARLIER TO LET HIM KNOW ABOUT PT'S PAIN AND ABOUT TYLENOL NOT WORKING. WHEN CAME TO EVALUATE PT, PT STATED THAT PAIN WAS GETTING BETTER. WILL CONTINUE TO MONITOR
[2018-08-18] MEDS: CHLORHEXADINE GLUC 2% CLOTH TP SCH (11:07)
[2018-08-18] MEDS: MUPIROCIN CA NASAL 2% 1GM TUBE NS SCH (11:11)
[2018-08-18 12:00] VITALS: BP 93/63
[2018-08-18] MEDS ORDERED: PRIVIGEN IV SCH (12:00)
[2018-08-18] MEDS: diphenhydrAMINE 50 MG/ML VIAL IVP SCH (12:50)
[2018-08-18] MEDS: IBUPROFEN 600 MG TAB PO SCH (12:51)
--- NOTE | 2018-08-18 13:19 | NUR ---
08/18/18 RD INITIAL ASSESSMENT COMPLETED PLEASE REFER TO NUTRITION ASSESSMENT UNDER CARE ACTIVITY FOR ESTIMATED NUTRITIONAL NEEDS. 1. CONTINUE REGULAR DIET TOLERATED 2. GENERAL HEALTHY EATING EDUCATION WAS PROVIDED 3. RD TO FOLLOW-UP 5-7 DAYS, LOW RISK NIKI RAMIRES RD
--- NOTE | 2018-08-18 14:00 | NUR ---
IV INFILTRATED. STARTED NEW IV 18G ON RIGHT FOREARM, FLUSHES WELL. RESTARTED IV IMMUNOGLOBULIN AT 20ML/HR. WILL CONTINUE TO MONITOR
[2018-08-18 16:00] VITALS: BP 98/65
--- NOTE | 2018-08-18 16:04 | NUR ---
2ND DOSE OF IV IMMUNOGLOBULIN DONE. WILL GIVE 3RD DOSE NOW. PT TOLERATING MED WELL. NO REACTION NOTED. WILL CONTINUE TO MONITOR
[2018-08-18 16:10] LABS: BASOPHILS % (AUTO) 0.5 % (0.0-2.0); EOSINOPHILS # (AUTO) 0.1 K/uL (0-0.4); EOSINOPHILS % (AUTO) 2.3 % (0.0-4.0); HEMATOCRIT 39.2 % (36-52); HEMOGLOBIN 13.4 g/dL (12.0-18.0); LYMPHOCYTES # (AUTO) 1.3 K/uL (2.0-11.5); LYMPHOCYTES % (AUTO) 25.6 % (20.5-51.1); MEAN CORPUSCULAR HEMOGLOBIN 31 pg (27-31); MEAN CORPUSCULAR HGB CONC 34 g/dL (33-37); MEAN CORPUSCULAR VOLUME 91.1 fL (80-94); MONOCYTES # (AUTO) 0.6 K/uL (0.8-1.0); MONOCYTES % (AUTO) 12.3 % (1.7-9.3); NEUTROPHILS # (AUTO) 2.9 K/uL (1.8-7.7); NEUTROPHILS % (AUTO) 59.3 % (42.2-75.2); PLATELET COUNT (AUTO) 213 K/uL (140-450); RED CELL DISTRIBUTION WIDTH 13.2 % (11.6-13.7); WHITE BLOOD COUNT (AUTO) 4.9 K/uL (4.8-10.8)
[2018-08-18 16:24] LABS: ANION GAP 8.7 (8-16); CARBON DIOXIDE 28.8 mmol/L (21-32); CREATININE 1.2 mg/dL (0.7-1.3); POTASSIUM 4.5 mmol/L (3.5-5.1)
[2018-08-18 16:27] LABS: MAGNESIUM 1.9 mg/dL (1.8-2.4); PHOSPHORUS 3.7 mg/dL (2.5-4.9)
--- NOTE | 2018-08-18 19:18 | NUR ---
GAVE BED SIDE REPORT TO SLEEVE BASTER RN. PT IN STABLE CONDITION
--- NOTE | 2018-08-18 19:19 | NUR ---
REPORT RECEIVED FROM AM NURSE AT BEDSIDE. PT IN STABLE CONDITION. AAOX4. INTRODUCED SELF TO PT. BOARD UPDATED. NO COMPLAINTS OF PAIN. NO SOB. AFEBRILE. IV SITE R FA 18 SL PATENT AND INTACT. SKIN WARM, DRY, AND INTACT WITH NO OPEN WOUNDS. BED LOCKED IN LOW POSITION. CALL FOWLER WITHIN REACH. SAFETY PRECAUTION IN PLACE. ALL NEEDS MET AT THIS TIME.
[2018-08-18 20:00] VITALS: BP 105/62
--- NOTE | 2018-08-18 20:18 | NUR ---
MESTINON GIVEN PO. PT TOLERATED WELL.
--- NOTE | 2018-08-18 21:55 | NUR ---
PT IN BED PLAYING ON HIS PHONE. NO S/S OF DISTRESS NOTED. WILL CONTINUE TO MONITOR.
--- NOTE | 2018-08-18 23:13 | NUR ---
MESTINON GIVEN PO. PT TOLERATED WELL.
[2018-08-19] VITALS: BP 114/77
--- NOTE | 2018-08-19 01:10 | NUR ---
PT SLEEPING COMFORTABLY IN BED BUT AROUSABLE. NO S/S OF DISTRESS NOTED. RESPIRATIONS EVEN, UNLABORED, AND WNL. WILL CONTINUE TO MONITOR.
[2018-08-19] MEDS: PYRIDOSTIGMINE 60 MG TAB PO SCH ×3 (03:16→10:41)
--- NOTE | 2018-08-19 03:16 | NUR ---
MESTINON GIVEN PO. PT TOLERATED WELL.
[2018-08-19] MEDS: ACETAMINOPHEN 325 MG TAB PO PRN ×2 (03:25→10:40)
--- NOTE | 2018-08-19 03:25 | NUR ---
TYL GIVEN FOR 5/10 HEADACHE. PT TOLERATED WELL.
[2018-08-19 04:00] VITALS: BP 98/66
--- NOTE | 2018-08-19 05:45 | NUR ---
PT SLEEPING COMFORTABLY IN BED BUT AROUSABLE. NO S/S OF DISTRESS NOTED. NO COMPLAINTS OF PAIN. NO SOB. AFEBRILE. WILL CONTINUE TO MONITOR.
[2018-08-19 07:03] LABS: ANION GAP 9.2 (8-16); CARBON DIOXIDE 29.1 mmol/L (21-32); CREATININE 0.9 mg/dL (0.7-1.3); POTASSIUM 4.3 mmol/L (3.5-5.1)
--- NOTE | 2018-08-19 07:10 | NUR ---
REPORT GIVEN TO AM NURSE AT BEDSIDE. PT IN STABLE CONDITION.
[2018-08-19 07:11] LABS: BASOPHILS % (AUTO) 0.7 % (0.0-2.0); EOSINOPHILS # (AUTO) 0.1 K/uL (0-0.4); EOSINOPHILS % (AUTO) 2.6 % (0.0-4.0); HEMATOCRIT 40.6 % (36-52); HEMOGLOBIN 13.8 g/dL (12.0-18.0); LYMPHOCYTES # (AUTO) 1.2 K/uL (2.0-11.5); LYMPHOCYTES % (AUTO) 26.8 % (20.5-51.1); MEAN CORPUSCULAR HEMOGLOBIN 31 pg (27-31); MEAN CORPUSCULAR HGB CONC 34 g/dL (33-37); MEAN CORPUSCULAR VOLUME 91.8 fL (80-94); MONOCYTES # (AUTO) 0.7 K/uL (0.8-1.0); MONOCYTES % (AUTO) 15.1 % (1.7-9.3); NEUTROPHILS # (AUTO) 2.5 K/uL (1.8-7.7); NEUTROPHILS % (AUTO) 54.8 % (42.2-75.2); PLATELET COUNT (AUTO) 214 K/uL (140-450); RED BLOOD CELL COUNT(AUTO) 4.42 MIL/uL (4.20-6.10); RED CELL DISTRIBUTION WIDTH 13.3 % (11.6-13.7); WHITE BLOOD COUNT (AUTO) 4.6 K/uL (4.8-10.8)
--- NOTE | 2018-08-19 07:11 | NUR ---
RECEIVED BEDSIDE REPORT FROM FERNANDO NGUYEN. PT STABLE, AWAKE, ALERT AND ORIENTED X4. NO SIGNS OF DISTRESS NOTED. DENIES PAIN OR SOB. NO REDNESS, SWELLING, OR INFLAMMATION NOTED ON IV SITE. CALL FOWLER WITHIN REACH. BED IN LOWEST POSITION. SAFETY MEASURES IN PLACE. PLAN OF CARE REVIEWED.
[2018-08-19 07:14] LABS: PHOSPHORUS 3.9 mg/dL (2.5-4.9)
[2018-08-19 08:00] VITALS: BP 105/70
[2018-08-19] MEDS: VENLAFAXINE XR 75 MG CAPER PO SCH (08:01)
--- NOTE | 2018-08-19 08:05 | NUR ---
ADMINISTERED SCHEDULED MEDICATIONS, PT TOLERATED WELL. NO OTHER NEEDS AT THIS TIME.
[2018-08-19] MEDS ORDERED: MES60 PO (10:01)
[2018-08-19] MEDS: MUPIROCIN CA NASAL 2% 1GM TUBE NS SCH ×2 (10:41→11:00)
[2018-08-19] MEDS: CHLORHEXADINE GLUC 2% CLOTH TP SCH (10:41)
--- NOTE | 2018-08-19 10:43 | NUR ---
ADMINISTERED SCHEDULED MEDICATIONS AND PRN TYLENOL FOR 08/30 HEADACHE. PT TOLERATED WELL. NO OTHER NEEDS AT THIS TIME. Addendum: 08/19/18 at 1200 by Tami Mcdermott RN PT REFUSED BACTROBAN NASAL.
--- NOTE | 2018-08-19 12:20 | NUR ---
D/C INSTRUCTIONS AND PAPERWORK GIVEN, PT VERBALIZED UNDERSTANDING. QUESTIONS AND CONCERNS WERE ADDRESSED. D/C IV, CATHETER TIP INTACT, BLEEDING CONTROLLED. SKIN INTACT, PT REFUSED VACCINES. PT TOOK ALL BELONGINGS HOME. ESCORTED PT TO THE LOBBY, PT STABLE, A&O X4, COMMUNICATES APPROPRIATELY AND AMBULATES WITH STEADY GAIT. PT PICKED UP BY DELLA.
== END 2018-08-19 12:20 | disposition home or self-care (01) | DRG 57 ==
LOC: MED 13:55 → UNDOADMIN 17:14 → MIC 17:14 → EEVIPCON 17:14 → MIC 19:58 → MTU 08-16 18:55
PROVIDERS: ADMIT Family Medicine; ATTEND Family Medicine
DX: G70.00 Myasthenia gravis without (acute) exacerbation (principal); E87.1 Hypo-osmolality and hyponatremia; Q60.0 Renal agenesis, unilateral; F41.1 Generalized anxiety disorder; H66.90 Otitis media, unspecified, unspecified ear; F17.210 Nicotine dependence, cigarettes, uncomplicated; F32.9 Major depressive disorder, single episode, unspecified; F41.9 Anxiety disorder, unspecified; H02.401 Unspecified ptosis of right eyelid; Z83.3 Family history of diabetes mellitus; E78.5 Hyperlipidemia, unspecified; Z22.322 Carrier or suspected carrier of Methicillin resistant Staphylococcus aureus
CPT/HCPCS: 36415; 70450; 71045; 71260; 76770; 80048; 80053; 80305; 81003; 82140; 82150; 82550; 82948; 83036; 83519; 83615; 83690; 83735; 83880; 84100; 84443; 84484; 85025; 85610; 85730; 87081; 93005; 94640; 96360; 96361; 99285; G0482; J1200; J7030; J7620; Q0092